=== PATIENT | male | born 1970 | race Two or more races ===

== ENCOUNTER 2023-06-20 12:23 | Inpatient (IN) | payer OTHER ==
[2023-06-20 13:31] VITALS: BMI 33.2
[2023-06-20] MEDS ORDERED: BENZOCAINE/MENTHOL (CHLORASEPTIC ) LOZENGE MM PRN (14:58)
[2023-06-20] MEDS ORDERED: BENZONATATE 200 MG CAPSULE PO PRN (14:58)
[2023-06-20] MEDS ORDERED: NALOXONE HCL (KLOXXADO) 8 MG SPRAY NS PRN (14:58)
[2023-06-20] MEDS ORDERED: IBUPROFEN 400 MG TABLET (FP) PO PRN (14:58)
[2023-06-20] MEDS ORDERED: MAGNESIUM HYDROX 2400MG/30ML ORAL SUSPENSION 30 ML CUP PO PRN (14:58)
[2023-06-20] MEDS ORDERED: ONDANSETRON *ODT* 4 MG TABLET SL PRN (14:58)
[2023-06-20] MEDS ORDERED: DICYCLOMINE HCL 10 MG CAPSULE PO PRN (14:58)
[2023-06-20] MEDS ORDERED: POLYETHYLENE GLYCOL (HEALTHYLAX) 3350 17 GM PACKET PO PRN (14:58)
[2023-06-20] MEDS ORDERED: MAG HYDROX/AL HYDROX/SIMETH 30 ML UNIT-DOSE CUP PO PRN (14:58)
[2023-06-20] MEDS ORDERED: guaiFENesin 600 MG TABLET.ER (FP) PO PRN (14:58)
[2023-06-20] MEDS ORDERED: LOPERAMIDE HCL 2 MG CAPSULE PO PRN (14:58)
[2023-06-20] MEDS ORDERED: BISMUTH SUBSALICYLATE 262 MG/15 ML BTL PO PRN (14:58)
[2023-06-20] MEDS ORDERED: NALOXONE HCL 0.4 MG/ML VIAL IM PRN (14:58)
[2023-06-20] MEDS ORDERED: PRENATAL VITAMINS W/ FOLIC ACID TABLET (FP) PO ONE (15:56)
[2023-06-20] MEDS: PRENATAL VITAMINS W/ FOLIC ACID TABLET (FP) PO SCH (15:58)
[2023-06-20] MEDS: MELATONIN 5 MG TABLETS PO SCH (22:55)
[2023-06-20] MEDS: THIAMINE HCL 100 MG TABLET (FP) PO SCH (22:55)
[2023-06-20] MEDS: METHOCARBAMOL 500 MG TABLET PO PRN (22:59)
[2023-06-21] MEDS: hydrOXYzine PAMOATE 25 MG CAPSULE (FP) PO PRN (11:22)
[2023-06-21] MEDS: cloNIDine HCL 0.1 MG TABLET PO PRN (16:06)
[2023-06-22] MEDS: diazePAM 5 MG TABLET PO SCH (10:51)
[2023-06-22] MEDS: IBUPROFEN 600 MG TABLET (FP) PO PRN (16:39)
[2023-06-22] MEDS: ACETAMINOPHEN 325 MG TABLET (FP) PO PRN (17:31)
[2023-06-23] MEDS: diazePAM 5 MG TABLET PO SCH (05:27)
[2023-06-23] MEDS: QUEtiapine FUMARATE 50 MG TABLET PO ONE (12:09)
[2023-06-23] MEDS: diazePAM 5 MG TABLET PO PRN (17:15)
[2023-06-24] MEDS: diazePAM 5 MG TABLET PO SCH (06:00)
[2023-06-24] MEDS: LEVOTHYROXINE NA 25 MCG TABLET (FP) PO SCH (06:08)
[2023-06-24 10:43] LABS: HEMATOCRIT 38.7 % (35.4-49); HEMOGLOBIN 12.9 GM/dL (11.7-16.9); MCH 29.6 pg (25.7-33.7); MCHC 33.3 g/dl (32.0-35.9); MEAN CELL VOLUME 88.6 fl (80-96); MEAN PLT VOLUME 7.6 fl (7.5-11.1); PLATELET COUNT 207 10^3/uL (134-434); RBC 4.37 M/mm3 (4.00-5.60); RDW 13.7 % (11.9-15.9); WHITE BLOOD COUNT 6.2 K/mm3 (4.0-10.0)
[2023-06-24 10:50] LABS: CALCIUM 8.4 mg/dL (8.5-10.1)
[2023-06-24 10:54] LABS: CREATININE 0.8 mg/dL (0.55-1.3)
[2023-06-24 10:55] LABS: BILIRUBIN,TOTAL 0.3 mg/dL (0.2-1)
[2023-06-24] MEDS ORDERED: diazePAM 5 MG TABLET PO PRN (10:55)
[2023-06-24] MEDS ORDERED: BUPRENORPHINE HCL 150 MCG, BUPRENORPHINE HCL 75 MCG BC PRN (10:55)
[2023-06-24] MEDS: cloNIDine HCL 0.1 MG TABLET PO ONE (11:09)
[2023-06-24] MEDS: BUPRENORPHINE HCL 150 MCG, BUPRENORPHINE HCL 75 MCG BC ONE (11:14)
[2023-06-24] MEDS: NICOTINE POLACRILEX 2 MG GUM BC PRN (14:55)
[2023-06-24] MEDS ORDERED: cloNIDine HCL 0.1 MG TABLET PO PRN (14:55)
[2023-06-25] MEDS ORDERED: BUPRENORPHINE HCL 150 MCG, BUPRENORPHINE HCL 75 MCG BC PRN
[2023-06-25] MEDS: BUPRENORPHINE HCL 150 MCG, BUPRENORPHINE HCL 75 MCG BC SCH (06:03)
[2023-06-25] MEDS: diazePAM 5 MG TABLET PO ONE (06:03)
[2023-06-25 09:59] VITALS: BP 151/95; PULSE 89; RESP 16; TEMP 97.3
[2023-06-26] MEDS ORDERED: BUPRENORPHINE HCL 450 MCG FILM BC SCH (06:00)
[2023-06-27] MEDS ORDERED: BUPRENORPHINE/NALOXONE 4 MG/1 MG FILM PACKET SL SCH (06:00)
[2023-06-28] MEDS ORDERED: BUPRENORPHINE/NALOXONE 8 MG/2 MG FILM PACKET SL ONE (06:00)
== END 2023-06-25 09:10 | disposition other institution (70) | DRG 773 ==
LOC: YASAS 12:23 → Y6N 15:26
PROVIDERS: ADMIT Allergy & Immunology; ATTEND Psychiatry & Neurology Pain Medicine
PROC: HZ2ZZZZ Detoxification Services for Substance Abuse Treatment (ICD-10-PCS; principal; 2023-06-20)
DX: F10.230 Alcohol dependence with withdrawal, uncomplicated (principal); F11.20 Opioid dependence, uncomplicated; F14.20 Cocaine dependence, uncomplicated; F12.20 Cannabis dependence, uncomplicated; F17.210 Nicotine dependence, cigarettes, uncomplicated; F25.0 Schizoaffective disorder, bipolar type; E03.9 Hypothyroidism, unspecified; G47.00 Insomnia, unspecified; Z28.310 Unvaccinated for COVID-19; Z28.9 Immunization not carried out for unspecified reason; Z56.0 Unemployment, unspecified; Z59.02 Unsheltered homelessness
CPT/HCPCS: 36415; 80053; 85027; 86780; 87635; 93005; 93010